=== PATIENT | male | born 2000 | race Caucasian/White ===

== ENCOUNTER 2021-06-04 21:00 | Emergency (ER) | payer OTHER ==
[~2021-06-04 21:00] MED LIST: NORFLEX 100 MG100 MG PO; TORADOL 10 MG T10 MG PO
== END 2021-06-05 01:20 | disposition home or self-care (01) ==
LOC: ER1 21:00
DX: S20.211A Contusion of right front wall of thorax, initial encounter (principal); V89.2XXA Person injured in unspecified motor-vehicle accident, traffic, initial encounter; Y92.410 Unspecified street and highway as the place of occurrence of the external cause
CPT/HCPCS: 71250; 99283